=== PATIENT | female | born 1980 | race Caucasian/White ===

== ENCOUNTER 2017-08-23 23:50 | Inpatient (IN) | payer OTHER ==
[2017-08-24 01:18] LABS: BASO % 0.1 % (0-2.0); EOS % 0.1 % (0-4.5); HEMATOCRIT 36.3 % (32.4-45.2); HEMOGLOBIN 12.4 GM/dL (10.7-15.3); LYMPH % 9.9 % (8-40); MCH 35.1 pg (25.7-33.7); MCHC 34.3 g/dl (32.0-36.0); MEAN CELL VOLUME 102.3 fl (80-96); MEAN PLT VOLUME 8.7 fl (7.5-11.1); MONO % 2.9 % (3.8-10.2); PLATELET COUNT 174 K/MM3 (134-434); RBC 3.55 M/mm3 (3.60-5.2); RDW 14.4 % (11.6-15.6)
[2017-08-24] MEDS ORDERED: DEXTROSE 5%-LACTATED RINGERS 1,000 ML IV SCH ×2 (01:30)
[2017-08-24 01:33] VITALS: BMI 29.0
[2017-08-24 01:43] LABS: INR 0.88 (0.82-1.09)
[2017-08-24 01:45] LABS: ACTIVATED PTT 27.1 SECONDS (26.9-34.4)
[2017-08-24 01:52] LABS: ANION GAP 14 (8-16); BLOOD UREA NITROGEN 7 mg/dL (7-18); CALCIUM 8.7 mg/dL (8.5-10.1); CHLORIDE 102 mmol/L (98-107); CO2 21 mmol/L (21-32); CREATININE 0.5 mg/dL (0.55-1.02); GLUCOSE,RANDOM 110 mg/dL (74-106); SODIUM 137 mmol/L (136-145)
[2017-08-24] MEDS ORDERED: BUTORPHANOL TARTRATE 1 MG/ML VIAL IVPUSH ONE ×2 (01:55→05:30)
[2017-08-24] MEDS ORDERED: PROMETHAZINE HCL 25 MG/1 ML VIAL ONE ×2 (01:56→05:34)
[2017-08-24] MEDS ORDERED: BUTORPHANOL TARTRATE 1 MG/ML VIAL ONE ×4 (01:56→05:33)
[2017-08-24] MEDS ORDERED: PROMETHAZINE HCL 25 MG/1 ML VIAL IVPUSH ONE ×2 (02:15→05:30)
[2017-08-24] MEDS ORDERED: OXYTOCIN 20 UNITS in 0.9% NS 20 UNIT/1,000 ML INFUS.BAG IV ONE ×2 (05:45→14:52)
[2017-08-24] MEDS ORDERED: LIDOCAINE HCL 1% PRESERVATIVE FREE - 30ML VIAL ONE (07:28)
--- NOTE | 2017-08-24 07:35 | PN ---
Progress Note (short form) - Note Progress Note: cx full 100 vx 0 mr, fhr cat 1
[2017-08-24] MEDS: OXYTOCIN 20 UNITS in 0.9% NS 20 UNIT/1,000 ML INFUS.BAG IV SCH ×2 (08:40→15:15)
[2017-08-24] MEDS ORDERED: BENZOCAINE 28 GM HEMORRHOIDAL OINTMENT TP PRN (08:55)
[2017-08-24] MEDS ORDERED: BISACODYL 10 MG SUPP.RECT RC PRN (08:55)
[2017-08-24] MEDS ORDERED: METHYLERGONOVINE MALEATE 0.2 MG/1 ML AMP IM PRN (08:55)
[2017-08-24] MEDS ORDERED: WITCH HAZEL 50% (TUCKS) 40 PAD/JAR PAD TP PRN (08:55)
[2017-08-24] MEDS ORDERED: BENZOCAINE 20% 57 GM BOTTLE TP PRN (08:55)
[2017-08-24] MEDS ORDERED: D5W-LR W/ 20 UNITS OXYTOCIN 20 UNIT/1,000 ML INFUS.BAG IV SCH (09:00)
[2017-08-24] MEDS: PRENATAL VITAMINS W/ FOLIC ACID TABLET (FP) PO SCH (09:40)
[2017-08-24] MEDS: FERROUS SO4 325 MG TABLET (FP) PO SCH ×2 (09:40→21:02)
[2017-08-24] MEDS ORDERED: ACETAMINOPHEN 325 MG TABLET (FP) ONE (10:25)
[2017-08-24] MEDS: ACETAMINOPHEN 325 MG TABLET (FP) PO PRN (10:29)
--- NOTE | 2017-08-25 06:49 | PN ---
Post Progress Note - Subjective Subjective: 36 yo Para 1 status post vaginal delivery, seen and evaluated. Doing well. Post Day: 1 Type of Delivery: Vital Signs: Vital Signs Temperature 98.5 F 08/25/17 05:38 Pulse Rate 109 H 08/25/17 05:38 Respiratory Rate 18 08/25/17 05:38 Blood Pressure 111/68 08/25/17 05:38 O2 Sat by Pulse Oximetry (%) 97 08/24/17 09:00 Breast Exam: Yes: Soft Uterus: Yes: Fundus Firm Abdomen/GI: Yes: Abdomen soft, Tolerating PO Lochia: Yes: Rubra Lochia, amount: Small Extremities: Yes: Calves non-tender Activity: Ambulating - Labs Labs: CBC WBC 10.0 K/mm3 (4.0-10.0) 08/24/17 01:10 RBC 3.55 M/mm3 (3.60-5.2) L 08/24/17 01:10 Hgb 12.4 GM/dL (10.7-15.3) 08/24/17 01:10 Hct 36.3 % (32.4-45.2) 08/24/17 01:10 MCV 102.3 fl (80-96) H 08/24/17 01:10 MCH 35.1 pg (25.7-33.7) H 08/24/17 01:10 MCHC 34.3 g/dl (32.0-36.0) 08/24/17 01:10 RDW 14.4 % (11.6-15.6) 08/24/17 01:10 Plt Count 174 K/MM3 (134-434) 08/24/17 01:10 MPV 8.7 fl (7.5-11.1) 08/24/17 01:10 Neutrophils % 87.0 % (42.8-82.8) H 08/24/17 01:10 Lymphocytes % 9.9 % (8-40) 08/24/17 01:10 Monocytes % 2.9 % (3.8-10.2) L 08/24/17 01:10 Eosinophils % 0.1 % (0-4.5) 08/24/17 01:10 Basophils % 0.1 % (0-2.0) 08/24/17 01:10 Problem List - Problems (1) Status post normal vaginal delivery Code(s): [id number] - Assessment/Plan Status post vaginal delivery Stable Continue routine care
[2017-08-25 07:11] LABS: BASO % 0.3 % (0-2.0); HEMATOCRIT 25.9 % (32.4-45.2); LYMPH % 23.9 % (8-40); MCH 35.7 pg (25.7-33.7); MCHC 34.9 g/dl (32.0-36.0); MEAN CELL VOLUME 102.2 fl (80-96); MEAN PLT VOLUME 7.7 fl (7.5-11.1); MONO % 5.6 % (3.8-10.2); NEUT % 69.2 % (42.8-82.8); PLATELET COUNT 139 K/MM3 (134-434); RBC 2.53 M/mm3 (3.60-5.2); RDW 14.6 % (11.6-15.6); WHITE BLOOD COUNT 8.9 K/mm3 (4.0-10.0)
[2017-08-25] MEDS: FERROUS SO4 325 MG TABLET (FP) PO SCH ×2 (09:32→20:59)
[2017-08-25] MEDS: PRENATAL VITAMINS W/ FOLIC ACID TABLET (FP) PO SCH (09:32)
[2017-08-25] MEDS: IBUPROFEN 600 MG TABLET (FP) PO PRN (14:55)
[2017-08-25] MEDS: ACETAMINOPHEN 325 MG TABLET (FP) PO PRN (14:55)
[2017-08-25] MEDS ORDERED: SENNOSIDES/DOCUSATE COMBO (SENNA PLUS) TABLET (UD) PO PRN (22:00)
[2017-08-26 09:16] VITALS: BP 114/68; PULSE 103; TEMP 99.3
--- NOTE | 2017-08-26 09:22 | DS ---
Physical Exam-[employer] Vital Signs: Vital Signs Temperature 99.3 F 08/26/17 09:16 Pulse Rate 103 H 08/26/17 09:16 Respiratory Rate 20 08/26/17 09:16 Blood Pressure 114/68 08/26/17 09:16 O2 Sat by Pulse Oximetry (%) 97 08/24/17 09:00 Constitutional: Yes: Well Nourished Eyes: Yes: Conjunctiva Clear HENT: Yes: WNL Neck: Yes: Supple Cardiovascular: Yes: Regular Rate and Rhythm Respiratory: Yes: Regular Gastrointestinal: Yes: Normal Bowel Sounds Pelvis: Yes: WNL External Genitalia: Yes: Normal Vaginal Exam: Yes: Normal Cervix: Yes: Normal Uterus: Yes: Firm ....Post : Yes: Uterus firm, Moderate lochia serosa Breast(s): Yes: WNL Musculoskeletal: Yes: WNL Extremities: Yes: WNL Neurological: Yes: Alert, Oriented ...Motor Strength: WNL Psychiatric: Yes: Alert, Oriented Labs: CBC, BMP 08/25/17 06:19 08/24/17 01:10 Delivery - Delivery Type of Anesthesia: Local Episiotomy/Laceration: Midline EBL (cc): 300 Delivery, Single - Stages of Labor Date 1st Stage Initiatied: 08/24/17 Time 1st Stage Initiated: 00:00 Date 2nd Stage Initiated: 08/24/17 Time 2nd Stage Initiated: 07:35 Date of Delivery: 08/24/17 Time of Delivery: 08:33 Time Placenta Delivered: 08:35 - Condition of [employer] Present: No Infant Gender: Male Weight: 6 lb 4 oz Position: Left, OA Total Hours ROM (Hrs/Mins): 3HRS/15MIN - 1 Minute Total Score: 9 5 Minutes Total Score: 9 - [place] Feeding Plan Initial Plan: Elected not to breastfeed exclusively throughout hospitalization Discharge Summary Reason For Visit: LABOR Current Active Problems Status post normal vaginal delivery (Acute) Procedures: Principal: Normal spontaneous vaginal delivery Hospital Course: Routine care Condition: Good - Instructions Diet, Activity, Other Instructions: Regular diet No douching, no sexual intercourse x 6 weeks F/U in clinic in 6 weeks Disposition: HOME - Home Medications Comprehensive Discharge Medication List: Ambulatory Orders Ferrous Sulfate [Feosol] 325 mg PO DAILY 08/19/17 Vit/Iron Fum/Folic AC [ Tablet] 1 each PO DAILY 08/19/17 Valacyclovir HCl [Valtrex] 500 mg PO DAILY 08/19/17
[2017-08-26] MEDS: FERROUS SO4 325 MG TABLET (FP) PO SCH (09:38)
[2017-08-26] MEDS: ACETAMINOPHEN 325 MG TABLET (FP) PO PRN (09:39)
[2017-08-26] MEDS: PRENATAL VITAMINS W/ FOLIC ACID TABLET (FP) PO SCH (09:40)
[2017-08-26] MEDS: IBUPROFEN 600 MG TABLET (FP) PO PRN (09:41)
== END 2017-08-26 17:45 | disposition home or self-care (01) | DRG 560 ==
LOC: JDEL 23:50 → JLDR 08-24 → UNDOADMIN 08-24 00:20 → JLDR 08-24 08:35 → J3W 08-24 16:01
PROVIDERS: ADMIT Obstetrics & Gynecology; ATTEND Obstetrics & Gynecology
PROC: 10E0XZZ Delivery of Products of Conception, External Approach (ICD-10-PCS; principal; 2017-08-24)
PROC: 0W8NXZZ Division of Female Perineum, External Approach (ICD-10-PCS; 2017-08-24)
DX: O48.0 Post-term pregnancy (principal); Z3A.40 40 weeks gestation of pregnancy; Z37.0 Single live birth
CPT/HCPCS: 36415; 59409; 80048; 85025; 85461; 85610; 85730; 86593; 86850; 86900; 86901; 86999